=== PATIENT | female | born 1950 | race Caucasian/White ===

== ENCOUNTER → 2024-06-09 09:05 | Outpatient (REF) | payer MEDICARE, OTHER, SELFPAY | LOC: HWRAD 09:05 | PROVIDERS: ATTENDING PHYSICIAN Family Medicine | DX: M85.89 Other specified disorders of bone density and structure, multiple sites (principal) | CPT/HCPCS: 77080 ==

== ENCOUNTER 2025-02-20 16:29 | Emergency (ER) | payer MEDICARE, OTHER, SELFPAY ==
[2025-02-20 16:31] VITALS: BP 170/70
--- NOTE | 2025-02-20 17:12 | ED.GENMED ---
History of Present Illness
General
Chief Complaint: Musculo-Skeletal Complaint
Time Seen by Provider: 02/20/25 16:59
History of Present Illness
History of Present Illness:
74-year-old 74-year-old female with past medical history of 1 diabetes, high blood pressure who actually follows at [facility] orthopedics for right hand trigger finger and presenting to the ER today after a slip and fall on ice where she broke her
fall with her right wrist and has had pain and swelling ever since then. No loss of consciousness or head strike. No other complaints besides right wrist pain.
Past History
Past History
ED Past Medical History: IDDM
Social History
Tobacco: Non-smoker
Alcohol: Occasional
Drug: None
Personal:
Living: with family
Phy Exam
General Physical Exam
General Presentation: well appearing and no apparent distress
General Skin: warm and dry
General Habitus: normal
General Mental: alert
General Hydration: appears well hydrated
ENT Exam
ENT Exam: EOMI, pharynx normal, neck supple and normocephalic
Eye Exam
Eye Exam: PERRL, cornea clear and conjunctiva normal
Cardiovascular Exam
Cardiovascular Exam: regular rate/rhythm, no edema, no murmur and normal peripheral pulses
Pulmonary Exam
Pulmonary Exam: lungs clear, no respiratory distress, no rales, no crackles, no rhonchi, no stridor, no wheezing and no cough
Gastrointestinal Exam
Gastrointestinal Exam: normal bowel sounds, non tender, soft, no organomegaly, no pulsatile mass and non distended
Neurological Exam
Neurological Exam: alert, oriented x3, no motor deficits and speech normal
Musculoskeletal Exam
Musculoskeletal Exam: full ROM, no edema and joint swelling (Right wrist)
Skin Exam
Skin Exam: normal color, warm/dry, no rash and no petechia
Psychiatric Exam
Psychiatric Exam: normal mood/affect
Course
Orders/Labs/Results
Orders:
Orders
02/20/25 17:06
CR Forearm - Right 2 View Urgent
Comment:
Reason For Exam: pain swelling after fall
CR Wrist - Right Min 3 Views Urgent
Comment:
Reason For Exam: pain, swelling after fall
02/20/25 17:38
Oxycodone/Acetaminophen [Percocet 5/325] 1 tablet PO NOW STA
02/20/25 18:08
CR Wrist - Right Min 3 Views Urgent
Comment:
Reason For Exam: post splinting/reduction
Vital Signs
Initial and Last Documented VS:
Initial Vital Signs
Temp Pulse Resp BP Pulse Ox
36.5 C 80 19 170/70 97
02/20/25 16:31 02/20/25 16:31 02/20/25 16:31 02/20/25 16:31 02/20/25 16:31
Last Documented Vital Signs
Temp Pulse Resp BP Pulse Ox
36.5 C 80 19 170/70 97
02/20/25 16:31 02/20/25 16:31 02/20/25 16:31 02/20/25 16:31 02/20/25 17:13
MDM/Problems Addressed
Differential Diagnosis Includes:
X-rays show displaced right distal radius fracture. Patient remains neurovascularly intact. Placed in a volar and sugar-tong splint with gentle traction placed on fingers and fracture reduced. Postreduction films obtained and show some
improvement. She will follow up with her orthopedic surgeon on Saturday. Rx for oxy sent
*Pulse Oximetry
SaO2: 97
Patient hypoxic: no
*Critical Care Note
Total Time (30-74mins, 75-104mins- exclusive of procedures): Not Applicable
ED Attending Note
-
Portions of this chart may have been created with voice recognition software.� Occasional wrong word or��sound alike� substitutions may have occurred due to the inherent limitations of voice recognition software.
Discharge Plan
Departure
Patient Disposition: Home (Routine Discharge)
Date of Disposition: 02/20/25
Time of Disposition: 18:30
Patient with high blood pressure during this ER visit?: No
Discharge Problem:
Distal radial fracture, Fall due to ice or snow
Instructions: Wrist fracture
Prescriptions:
New
oxycodone 5 mg tablet
5 mg PO Q6H PRN (Reason: severe pain) Qty: 7 0RF
No Action
insulin glargine 100 UNIT/ML solution
24 units SQ DAILY
insulin lispro [Humalog Pen] 100 UNIT/1 ML insulin pen
5 - 10 units SQ ACHS
Patient Comments:
sliding scale
metoprolol succinate 50 MG tablet extended release 24 hr
50 mg PO DAILY
omeprazole [Prilosec] 40 MG capsule,delayed release(DR/EC)
40 mg PO DAILY
famotidine 20 MG tablet
20 mg PO HS
conjugated estrogens [Premarin] 0.625 MG tablet
0.625 mg PO WEEKLY
Patient Comments:
2 times per week
hydrochlorothiazide 25 MG tablet
25 mg PO DAILY
irbesartan 150 MG tablet
300 mg PO DAILY
Referrals:
UNKNOWN - PT DOES,NOT KNOW [Family Provider]
Activity Restrictions/Additional Instructions:
Follow-up with orthopedic surgery next week. Keep your splint on at all times. Your splint is not able to get wet so we will need to be covered if you need to shower. Take Tylenol or Motrin for pain. Prescription for oxycodone has been sent to
your pharmacy for severe pain not controlled by other medications. Return to the ER if you develop any numbness or tingling in your fingers or develop any discoloration to your fingers prior to your orthopedic evaluation.
Interventions
Interventions:
*General Assessment Last Done: 02/20/25 16:32
*Neglect/Abuse Screening Last Done: 02/20/25 16:32
*ED COVID-19 Vaccine History Last Done: 02/20/25 16:32
*ED Influenza Vaccine History Last Done: 02/20/25 16:32
[facility] Fall Risk Assessment Tool Last Done: 02/20/25 17:30
*Risk Screen - Suicide (C-SSRS) Last Done: 02/20/25 16:32
*Nursing Disposition Last Done: 02/20/25 18:42
ED-Musculoskeletal Assessment Last Done: 02/20/25 17:31
Discharge Date and Time
Discharge Date/Time: 02/20/25 18:44
Print Language: BELARUSIAN
[2025-02-20 17:32] VITALS: BMI 25.0
[2025-02-20] MEDS: PERCOCET 5/325 1 TABLET PO (17:42)
== END 2025-02-20 18:44 | disposition home or self-care (01) ==
LOC: EMR 16:29
PROVIDERS: EMERGENCY PHYSICIAN Student in an Organized Health Care Education/Training Program
DX: S52.591A Other fractures of lower end of right radius, initial encounter for closed fracture (principal); W00.0XXA Fall on same level due to ice and snow, initial encounter; E11.9 Type 2 diabetes mellitus without complications; Z79.4 Long term (current) use of insulin
CPT/HCPCS: 29125; 99283; 73090; 73110